=== PATIENT | female | born 1990 | race Caucasian/White ===

== ENCOUNTER 2018-04-03 10:48 | Emergency (ER) | payer MEDICAID ==
--- NOTE | 2018-04-03 11:11 | EDPHY ---
H & P Stated Complaint: CP/SOB/nausea/pain in arm and jaw for a couple hours last night Time Seen by Provider: 04/03/18 11:09 HPI/ROS: HPI: This is a 27-year-old female who presents with Chief Complaint: CP/SOB/nausea/pain in arm and jaw for a couple hours last night Location: Anterior chest Quality: Pressure Duration: Yesterday evening around 11:00 p.m., lasting 2 hr Signs and Symptoms: no shortness of breath at rest, no shortness of breath on exertion, no cough, + chest pain, + palpitations, no lower extremity edema, no wheezing, no orthopnea, no paroxysmal nocturnal dyspnea, no fever, no injury/ trauma, no hemoptysis, no carpal pedal spasms Timing: Resolved gradually over 2 hr. Severity: Moderate Context: Patient reports that she is lying in bed around 11:00 p.m. last night when she had sudden onset feeling pressure in her generalized anterior chest area that was nonradiating in nature and then accompanied by her heart"racing." She reports that she had no shortness of breath, nausea, vomiting, diaphoresis. She did feel extremely anxious and became cardiac aware. She told her mother about her symptoms who gave her 2 baby aspirins. 30 min later she took an Ativan as she has a history of anxiety and the symptoms slowly resolved over the next hour and half. She has a history of gastroesophageal reflux disease but ate a chicken sandwich last night with let us and does not believe that these symptoms are similar as she has not had indigestion in"some time". She has no recent long distance travel. She did complain of some bilateral calf achiness yesterday evening. IUD in place. Modifying Factors: Aspirin Ativan Comment: ROS: see HPI Constitutional: No fever, no chills, no weight loss Eyes: No blurred vision Respiratory: No shortness of breath,+ cough Cardiovascular: + chest pain, no palpitations, no lower extremity edema Gastrointestinal: No nausea, no vomiting, no diarrhea Genitourinary: No dysuria Extremities: No myalgias Neurologic: No weakness, no numbness Skin: No rashes Hematologic: No bruising, no bleeding MEDICAL/SURGICAL/SOCIAL HISTORY: pmh- Panic attacks, asthma psh- breast reduction Social history: Lives with parents CONSTITUTIONAL: Tearful well-appearing young adult white female, awake and alert, no obvious distress HEENT: Atraumatic and normocephalic, PERRL, EOMI. Nares patent; no rhinorrhea; no nasal mucosal edema. Tympanic membranes clear. Oropharynx clear, no exudate and moist pink mucosa. Airway patent. No lymphadenopathy. No meningismus. Cardiovascular: Normal S1/S2, regular rate, regular rhythm, without murmur rub or gallop. PULMONARY/CHEST: Symmetrical and nontender. Clear to auscultation bilaterally. Good air movement. No accessory muscle usage. ABDOMEN: Soft, nondistended, nontender, no rebound, no guarding, no peritoneal signs, no masses or organomegaly. No CVAT. EXTREMITIES: 2/2 pulses, strength 5/5, no deformities, no clubbing, no cyanosis or edema. NEUROLOGICAL: no focal neuro deficits. GCS 15. SKIN: Warm and dry, no erythema. no rash. Good capillary refill. Source: Patient Exam Limitations: No limitations - Personal History LMP (Females 10-55): IUD In [address] - Medical/Surgical History Hx Asthma: Yes Hx Chronic Respiratory Disease: No Hx Diabetes: No Hx Cardiac Disease: No Hx Renal Disease: No Hx Cirrhosis: No Hx Alcoholism: No Hx HIV/AIDS: No Hx Splenectomy or Spleen Trauma: No Other PMH: pmh- Panic attacks, asthma. psh- breast reduction - Social History Smoking Status: Former smoker Constitutional: Initial Vital Signs Temperature (C) 36.5 C 04/03/18 10:55 Heart Rate 77 04/03/18 10:55 Respiratory Rate 20 04/03/18 10:55 Blood Pressure 98/61 L 04/03/18 10:55 O2 Sat (%) 96 04/03/18 10:55 O2 Delivery Mode Room Air Allergies/Adverse Reactions: No Known Allergies Allergy (Verified 04/03/18 10:54) Home Medications: Medication Instructions Recorded LORazepam 09/30/15 Sertraline HCl 04/03/18 traZODone 04/03/18 Medical Decision Making - Diagnostics EKG Interpretation: 12 lead EKG: Indication: Palpitation Rhythm: Normal sinus rhythm, rate of 66 beats per minute [place]: Normal Intervals: Normal QRS: Normal ST segments: Normal INTERPRETATION: Normal EKG The 12 lead EKG was interpreted by myself and with attending. Imaging Results: Imaging Impressions Chest X-Ray 04/03/18 11:20 Impression: Normal chest x-ray. ED Course/Re-evaluation: No palpitations or chest pain upon arrival to the emergency room. Initial EKG upon arrival shows normal sinus rhythm with no acute ischemic changes, no arrhythmias reviewed with attending. Vital signs stable upon arrival. Placed on monitoring coordinator with no arrhythmias or ST changes during ER visit. Heart rate remains in the 60s. Chest x-ray, labs ordered 1149: Notified by tech that is i-STAT troponin is negative. Labs reviewed. No signs of leukocytosis/anemia/platelet dysfunction/HERB/ elevated LFTs/electrolyte imbalance/pancreatitis/ACS/VTE. Chest x-ray my read shows no opacity, no effusion, no widened mediastinum, no pneumothorax. HEART score low risk. Appropriate for follow-up outpatient and to determine if candidate for Holter monitor. No signs of pericarditis, acute coronary syndrome, congestive heart failure, Brugada syndrome, arrhythmias. This patient was seen under the supervision of my secondary supervising physician. I evaluated care for this patient independently. Discussed this patient with Dr. Cates. Differential Diagnosis: Chest pain including but not limited to myocardial ischemia, pulmonary embolus, chest wall pain, pleural inflammation and pulmonary infectious causes. - Data Points Laboratory Results: Laboratory Results 04/03/18 11:30 04/03/18 11:30 04/03/18 04/03/18 04/03/18 11:36 11:30 11:30 WBC RBC Hgb Hct MCV MCH MCHC RDW Plt Count MPV Neut % (Auto) Lymph % (Auto) [place] % (Auto) Eos % (Auto) Baso % (Auto) Nucleat RBC Rel Count Absolute Neuts (auto) Absolute Lymphs (auto) Absolute Monos (auto) Absolute Eos (auto) Absolute Basos (auto) Absolute Nucleated RBC Immature Gran % Immature Gran # D-Dimer Sodium Potassium Chloride Carbon Dioxide Anion Gap BUN Creatinine Estimated GFR Glucose Calcium Total Bilirubin Conjugated Bilirubin Unconjugated Bilirubin AST ALT Alkaline Phosphatase POC Troponin I 0.00 ng/mL ng/mL (0.00-0.08) Total Protein Albumin Lipase TSH 0.885 uIU/mL uIU/mL (0.465-4.680) Beta HCG, Qual NEGATIVE 04/03/18 04/03/18 04/03/18 11:30 11:30 11:30 WBC 6.98 10^3/uL 10^3/uL (3.80-9.50) RBC 4.89 10^6/uL 10^6/uL (4.18-5.33) Hgb 15.0 g/dL g/dL (12.6-16.3) Hct 42.5 % % (38.0-47.0) MCV 86.9 fL fL (81.5-99.8) MCH 30.7 pg pg (27.9-34.1) MCHC 35.3 g/dL g/dL (32.4-36.7) RDW 11.9 % % (11.5-15.2) Plt Count 198 10^3/uL 10^3/uL (150-400) MPV 11.2 fL fL (8.7-11.7) Neut % (Auto) 61.9 % % (39.3-74.2) Lymph % (Auto) 28.5 % % (15.0-45.0) [place] % (Auto) 7.2 % % (4.5-13.0) Eos % (Auto) 2.0 % % (0.6-7.6) Baso % (Auto) 0.3 % % (0.3-1.7) Nucleat RBC Rel Count 0.0 % % (0.0-0.2) Absolute Neuts (auto) 4.32 10^3/uL 10^3/uL (1.70-6.50) Absolute Lymphs (auto) 1.99 10^3/uL 10^3/uL (1.00-3.00) Absolute Monos (auto) 0.50 10^3/uL 10^3/uL (0.30-0.80) Absolute Eos (auto) 0.14 10^3/uL 10^3/uL (0.03-0.40) Absolute Basos (auto) 0.02 10^3/uL 10^3/uL (0.02-0.10) Absolute Nucleated RBC 0.00 10^3/uL 10^3/uL (0-0.01) Immature Gran % 0.1 % % (0.0-1.1) Immature Gran # 0.01 10^3/uL 10^3/uL (0.00-0.10) D-Dimer < 0.27 ug/mLFEU ug/mLFEU (0.00-0.50) Sodium 139 mEq/L mEq/L (135-145) Potassium 4.0 mEq/L mEq/L (3.3-5.0) Chloride 106 mEq/L mEq/L (97-110) Carbon Dioxide 22 mEq/l mEq/l (22-31) Anion Gap 11 mEq/L mEq/L (8-16) BUN 12 mg/dL mg/dL (7-23) Creatinine 0.7 mg/dL mg/dL (0.6-1.0) Estimated GFR > 60 Glucose 122 mg/dL H mg/dL (70-100) Calcium 9.4 mg/dL mg/dL (8.5-10.4) Total Bilirubin 0.5 mg/dL mg/dL (0.1-1.4) Conjugated Bilirubin 0.3 mg/dL mg/dL (0.0-0.5) Unconjugated Bilirubin 0.2 mg/dL mg/dL (0.0-1.1) AST 22 IU/L IU/L (14-46) ALT 35 IU/L IU/L (9-52) Alkaline Phosphatase 71 IU/L IU/L (38-126) POC Troponin I Total Protein 7.3 g/dL g/dL (6.3-8.2) Albumin 4.4 g/dL g/dL (3.5-5.0) Lipase 97 IU/L IU/L (23-300) TSH Beta HCG, Qual Point of Care Test Results: Chemistry 04/03/18 11:36 POC Troponin I 0.00 ng/mL ng/mL (0.00-0.08) Departure - Departure Disposition: Home, Routine, Self-Care Clinical Impression: Heart palpitations Condition: Good Instructions: Heart Palpitations (ED), Holter Monitoring (ED) Additional Instructions: Consume a minimum of 8-10 glasses of water or electrolyte fluid replacement drinks that include Gatorade, Powerade, Pedialyte. Please refrain from drinking any caffeine or stimulant products. If symptoms reoccur, please follow up with Cardiology to discuss candidacy of Holter monitor. Return to the ER immediately if you experience new, continued or worsened chest pain, chest pain that radiates, chest pain accompanied by exertion or associated with shortness of breath, sweating, nausea, dizziness, back pain, or any other symptoms that concern you. Referrals: Mahogany Taylor MD [Primary Care Provider] - As per Instructions Bonifacio Hill MD [Medical Doctor] - As per Instructions
--- NOTE | 2018-04-03 11:11 | CPEKG ---
Heart Rate: 66 RR Interval: 909 P-R Interval: 164 QRSD Interval: 88 QT Interval: 396 QTC Interval: 415 P [place]: 37 QRS [place]: 74 T Wave [place]: 54 EKG Severity - NORMAL ECG - EKG Impression: SINUS RHYTHM Electronically Signed By: Zunilda Dietrich 04-Apr-2018 18:02:38
[2018-04-03 11:41] LABS: PLATELET COUNT 198 10^3/uL (150-400)
[2018-04-03 12:09] VITALS: BP 108/68
== END 2018-04-03 12:44 | disposition home or self-care (01) ==
DX: R00.2 Palpitations (principal); J45.909 Unspecified asthma, uncomplicated; Z87.891 Personal history of nicotine dependence
CPT/HCPCS: 84484-PO